=== PATIENT | female | born 1940 | race Caucasian/White ===

== ENCOUNTER 2021-01-08 08:37 | Day surgery (SDC) | payer MEDICARE ==
[~2021-01-08] VITALS: Ht 160 cm; Wt 62.5 kg
[2021-01-08] VITALS (10 sets, daily range): BP systolic 94–136; BP diastolic 47–89
[2021-01-08] MEDS ORDERED: normal saline 1000ml 1,000 ML IV SCH ×2 (09:15→11:50)
[2021-01-08] MEDS ORDERED: cefazolin/dext.iso 2gm/100ml 100 ML IV ONE (09:15)
[2021-01-08 10:26] LABS: BASOPHILS % (AUTO) 0.3 % (0-1); EOSINOPHILS % (AUTO) 0.4 % (0-6); HEMATOCRIT 43.1 % (35.0-45.0); HEMOGLOBIN 14.5 g/dl (12.0-16.0); LYMPHOCYTES # (AUTO) 1.9 X10'3 (1.1-4.8); LYMPHOCYTES % (AUTO) 17.9 % (21-51); MEAN CORPUSCULAR HEMOGLOBIN 32.6 PG (27.0-31.0); MEAN CORPUSCULAR HGB CONC 33.6 g/dL (33.0-36.5); MEAN CORPUSCULAR VOLUME 97.1 FL (78-98); MEAN PLATELET VOLUME 8.2 FL (7.4-10.4); MONOCYTES # (AUTO) 0.8 X10'3 (0-0.9); MONOCYTES % (AUTO) 7.7 % (2-12); NEUTROPHILS % (AUTO) 73.7 % (42-75); PLATELET COUNT 215 X10'3 (140-440); RED BLOOD COUNT 4.44 X10'6 (4.20-5.60); RED CELL DISTRIBUTION WIDTH 14.1 % (11.5-14.5); WHITE BLOOD COUNT 10.8 X10'3 (4.5-11.0)
[2021-01-08] MEDS ORDERED: diphenhydrAMINE 50 mg/ml inj ONE (10:44)
[2021-01-08] MEDS ORDERED: MELO-102 PO (10:45)
[2021-01-08] MEDS ORDERED: fentaNYL/PF 50MCG/1 ML 2ML syringe ONE (10:45)
[2021-01-08] MEDS ORDERED: iohexol 300 MG/1 ML 50ml polymer ONE (10:45)
[2021-01-08] MEDS ORDERED: ONDA-103 PO (10:45)
[2021-01-08] MEDS ORDERED: midazolam 1 mg/ML 2ml injection ONE (10:45)
[2021-01-08] MEDS ORDERED: LIDOcaine 1%/PF 5ML 10 MG/ML VIAL ONE (10:45)
[2021-01-08] MEDS ORDERED: TRAM50TA2 PO (10:45)
[2021-01-08] MEDS ORDERED: ondansetron/PF 4mg/2ml inj ONE (10:52)
[2021-01-08] MEDS ORDERED: HYDROcodone/acetaminophen 5mg/325mg tablet PO ONE (13:05)
--- NOTE | 2021-01-08 13:07 | NUR ---
Spoke with patient's son who states that the patient is now taking hydrocodone, was not sure of dose. Requested that I call Dr. Jagjit Weeks's office. Spoke with Tomasa at Dr. Weeks's office and was informed that the patient is taking [place] 5/325 and appears to be tolerating. Notified Dr. Salvador and received order for [place] 5/325 tablet by mouth once now.
[2021-01-08] MEDS ORDERED: ondansetron 4mg rapidly disintigrating tab PO ONE (13:55)
== END 2021-01-08 15:00 | disposition home or self-care (01) ==
LOC: SSTAY O 08:37
PROVIDERS: ATTEND Radiology Diagnostic Radiology
DX: M80.08XA Age-related osteoporosis with current pathological fracture, vertebra(e), initial encounter for fracture (principal); Z88.5 Allergy status to narcotic agent; Z79.01 Long term (current) use of anticoagulants; Z79.899 Other long term (current) drug therapy
CPT/HCPCS: 22513; 36415; 85025; 85610; 99152; 99153; C1713; J1200; J2250; J2405; J3010; J7030; Q9967